=== PATIENT | male | born 1985 | race Caucasian/White ===

== ENCOUNTER → 2018-04-11 | Outpatient (CLI) | payer OTHER | LOC: COL.RAD 08:15 | DX: R59.0 Localized enlarged lymph nodes (principal) ==

== ENCOUNTER → 2018-08-25 | Outpatient (CLI) | payer OTHER ==
[~2018-08-25] VITALS: Ht 170.2 cm; Wt 108.1 kg
[~2018-08-25] MED LIST: MULTI VITAMINS1 TAB PO; OMEGA-3 1000 MG1 CAP PO; ZANTAC 150MG T150 MG PO
[2018-08-25 08:22] VITALS: BP 144/83; PULSE 91
[2018-08-25 09:26] VITALS: BP 136/83; PULSE 65
--- NOTE | 2018-08-25 09:35 | NUR ---
PT WAS TAKEN TO FRONT LOBBY AND WENT TO HIS POV
== END ==
LOC: COL.RAD 08:05
DX: R59.0 Localized enlarged lymph nodes (principal); G47.30 Sleep apnea, unspecified; Z85.820 Personal history of malignant melanoma of skin

== ENCOUNTER 2019-03-26 10:27 | Day surgery (SDC) | payer OTHER ==
[~2019-03-26] VITALS: Ht 170.2 cm; Wt 107.9 kg
[2019-03-26 10:54] VITALS: BP 150/91; PULSE 103; TEMP 98.9
[2019-03-26] MEDS ORDERED: PEPCID AC 10MG10 MG PO (10:59)
--- NOTE | 2019-03-26 11:00 | NUR ---
TO RM AT 1030- CALL LIGHT IN REACH WILL COME LATER TO PICK PATIENT UP WHEN CALLED
[2019-03-26 12:35] VITALS: BP 124/71; PULSE 86; TEMP 98.6
--- NOTE | 2019-03-26 12:35 | NUR ---
Patient arrives back to [facility] alert. Patient ambulates from cart to chair with stand by assist and without any complications. Patient monitor applied, vitals stable. Patient reports he has two little kids and his will come to pick him up when he is ready to go home. Patient given water and muffin.
--- NOTE | 2019-03-26 12:45 | NUR ---
Dr Talamantes into see patient at this time to go over procedure results.
[2019-03-26 12:50] VITALS: BP 122/73; PULSE 78
[2019-03-26 13:05] VITALS: BP 116/75; PULSE 76
[2019-03-26 13:20] VITALS: BP 120/78; PULSE 76
--- NOTE | 2019-03-26 13:25 | NUR ---
Dismissal instructions gone over with patient. Patient verbalizes understanding and all questions answered.
--- NOTE | 2019-03-26 13:30 | NUR ---
Patient dismissed to private vehicle his spouse is driving at patient patient enterance via wheelchair. Patient leaves thanking staff for services.
[2019-03-26 13:40] VITALS: BP 127/79; PULSE 84
== END 2019-03-26 13:30 | disposition home or self-care (01) ==
LOC: SDCO 10:27
DX: K21.0 Gastro-esophageal reflux disease with esophagitis (principal); F41.9 Anxiety disorder, unspecified; E78.00 Pure hypercholesterolemia, unspecified; Z85.828 Personal history of other malignant neoplasm of skin; Z83.79 Family history of other diseases of the digestive system
CPT/HCPCS: J2250; J3010; J7030

== ENCOUNTER → 2022-06-03 | Outpatient (CLI) | payer OTHER ==
[~2022-06-03] MED LIST changes: +PEPCID AC 10MG10 MG PO
== END ==
LOC: MC.RAD 13:55
DX: D17.79 Benign lipomatous neoplasm of other sites (principal)

== ENCOUNTER 2023-10-21 13:10 | Emergency (ER) | payer OTHER ==
[~2023-10-21] VITALS: Ht 170.2 cm; Wt 111.4 kg
[2023-10-21 13:31] VITALS: TEMP 98.3
[2023-10-21] MEDS ORDERED: Rabies Immune Globulin PF 300 UNITS/2 ML VIAL IM ONE (15:00)
[2023-10-21 15:38] VITALS: BP 139/88; PULSE 92
== END 2023-10-21 15:38 | disposition home or self-care (01) ==
LOC: COL.ER 13:10
DX: S81.851A Open bite, right lower leg, initial encounter (principal); Z23 Encounter for immunization; W55.81XA Bitten by other mammals, initial encounter

== ENCOUNTER 2023-10-21 15:14 | Outpatient (RCR) | payer OTHER ==
[~2023-10-21] VITALS: Ht 170.2 cm; Wt 118.7 kg
[2023-11-04 15:10] VITALS: BP 131/78; PULSE 102; TEMP 98.5
--- NOTE | 2023-11-04 15:18 | NUR ---
PT TOLERATED INJECTION WELL. VS REMAINED WITHIN NORMAL LIMITS. PT FREE FROM ACUTE CONCERNS AND COMPLAINTS UPON DISCHARGE. PT AMBULATED INDEPENDENTLY TO MAIN LOBBY.
== END 2023-11-04 15:19 | disposition home or self-care (01) ==
LOC: COL.ER 11-04 15:00
DX: Z29.14 Encounter for prophylactic rabies immune globulin (principal)

== ENCOUNTER 2023-10-21 15:14 | Outpatient (RCR) | payer OTHER ==
[~2023-10-21] VITALS: Ht 170.2 cm; Wt 118.7 kg
[2023-10-24 15:14] VITALS: BP 137/82; PULSE 79; TEMP 98.7
--- NOTE | 2023-10-24 15:34 | NUR ---
Pt tolerated rabies vaccine without issue. He exits dept with steady gait. Free of complaints at discharge.
[2023-10-28 08:05] VITALS: BP 141/82; PULSE 82; TEMP 98.6
== END 2023-11-02 ==
LOC: COL.ER
DX: Z29.14 Encounter for prophylactic rabies immune globulin (principal)